=== PATIENT | male | born 2005 | race Caucasian/White ===

== ENCOUNTER 2025-07-15 06:22 | Emergency (ER) | payer OTHER, SELFPAY ==
[2025-07-15 06:28] VITALS: BP 143/85
[2025-07-15 07:00] VITALS: BP 130/84
--- NOTE | 2025-07-15 07:11 | ED.GENMED ---
History of Present Illness
<TYREL Munguia - Last Filed: 07/15/25 10:36>
General
Chief Complaint: Vomiting Blood
Source: patient and family
Exam Limitations: none
Time Seen by Provider: 07/15/25 07:00
Nursing documentation reviewed up to this point in time: agreed with
History of Present Illness
History of Present Illness:
Patient is a 19-year-old male past medical history of gastroparesis presents to the ER for evaluation of vomiting. Patient reports he was woken up by the sudden sensation that he needed to vomit and vomited darkish colored blood. Patient reports
he vomited to many times to count. This woke him up around 4:50 AM. He has had intermittent vomiting and has history with gastroparesis however never directly vomits blood initially. He does get blood streaks in his emesis from time to time. He
does complain of epigastric heartburn and burning. He denies any recent illness fever or chills. He is followed by [facility] in [facility]. Mom at bedside assisting with history.
Last endoscopy was [facility]. Mom reports patient has an appointment with GI in 2 wks.
Past History
<TYREL Munguia - Last Filed: 07/15/25 10:36>
Social History
Tobacco: Non-smoker
Alcohol: None
Drug: None
Phy Exam
<TYREL Munguia - Last Filed: 07/15/25 10:36>
General Physical Exam
General Presentation: no apparent distress
General age: appears stated age
General Skin: warm and dry
General Habitus: normal
General Mental: alert
General Hydration: appears well hydrated
Cardiovascular Exam
Cardiovascular Exam: regular rate/rhythm, no murmur and normal peripheral pulses
Pulmonary Exam
Pulmonary Exam: lungs clear and no respiratory distress
Gastrointestinal Exam
Gastrointestinal Exam: soft and other (mild epigastric tenderness)
Neurological Exam
Neurological Exam: alert and oriented x3
Musculoskeletal Exam
Musculoskeletal Exam: full ROM
Skin Exam
Skin Exam: normal color and warm/dry
Psychiatric Exam
Psychiatric Exam: normal mood/affect
Course
<TYREL Munguia - Last Filed: 07/15/25 10:36>
Orders/Labs/Results
Orders:
Orders
07/15/25 06:45
IV Insert/Care/Rem.- Treatment PRN
Straight cath- Treatment ONCE
Urinalysis Reflex To Culture Urgent
Date Specimen was Collected: 07/15/25
Time Specimen was Collected: 06:45
07/15/25 07:06
Complete Blood Count/With Diff Urgent
Comprehensive Metabolic Panel Urgent
Lipase Urgent
07/15/25 07:21
0.9% Sodium Chloride 1000 ml [Nss] 1,000 ml IV BOLUS
Metoclopramide [Reglan] 10 mg IV NOW STA
Pantoprazole [Protonix IV] 40 mg IV NOW STA
07/15/25 07:52
Diphenhydramine [Benadryl] 25 mg IV NOW STA
07/15/25 07:53
Diphenhydramine [Benadryl] 50 mg .ROUTE .STK-MED ONE
Abnormal Lab Results
07/15/25
07:06
Absolute Lymphs (auto) 1.1 L 10^3/uL
(1.2-3.4)
Neutrophils % 76.1 H %
(42.2-75.2)
Lymphocytes % 15.8 L %
(20.5-51.1)
Glucose 123 H mg/dl
(70-99)
Total Bilirubin 1.7 H mg/dl
(0.2-1.3)
07/15/25 07:06
07/15/25 07:06
Vital Signs
Initial and Last Documented VS:
Initial Vital Signs
Temp Pulse Resp BP Pulse Ox
98.1 F 75 20 143/85 99
07/15/25 06:28 07/15/25 06:28 07/15/25 06:28 07/15/25 06:28 07/15/25 06:28
Last Documented Vital Signs
Temp Pulse Resp BP Pulse Ox
98.1 F 71 16 117/68 98
07/15/25 06:28 07/15/25 08:33 07/15/25 08:33 07/15/25 08:28 07/15/25 08:28
[employer] Consultant consulted with Physician
[employer] Consultant consulted with physician?: Yes
Name of Physician Consulted: Dr Rosas
<Sav Rosas, DO - Last Filed: 07/15/25 10:34>
Orders/Labs/Results
Orders:
Orders
07/15/25 06:45
IV Insert/Care/Rem.- Treatment PRN
Straight cath- Treatment ONCE
Urinalysis Reflex To Culture Urgent
Date Specimen was Collected: 07/15/25
Time Specimen was Collected: 06:45
07/15/25 07:06
Complete Blood Count/With Diff Urgent
Comprehensive Metabolic Panel Urgent
Lipase Urgent
07/15/25 07:21
0.9% Sodium Chloride 1000 ml [Nss] 1,000 ml IV BOLUS
Metoclopramide [Reglan] 10 mg IV NOW STA
Pantoprazole [Protonix IV] 40 mg IV NOW STA
07/15/25 07:52
Diphenhydramine [Benadryl] 25 mg IV NOW STA
07/15/25 07:53
Diphenhydramine [Benadryl] 50 mg .ROUTE .STK-MED ONE
Abnormal Lab Results
07/15/25
07:06
Absolute Lymphs (auto) 1.1 L 10^3/uL
(1.2-3.4)
Neutrophils % 76.1 H %
(42.2-75.2)
Lymphocytes % 15.8 L %
(20.5-51.1)
Glucose 123 H mg/dl
(70-99)
Total Bilirubin 1.7 H mg/dl
(0.2-1.3)
07/15/25 07:06
07/15/25 07:06
Vital Signs
Initial and Last Documented VS:
Initial Vital Signs
Temp Pulse Resp BP Pulse Ox
98.1 F 75 20 143/85 99
07/15/25 06:28 07/15/25 06:28 07/15/25 06:28 07/15/25 06:28 07/15/25 06:28
Last Documented Vital Signs
Temp Pulse Resp BP Pulse Ox
98.1 F 71 16 117/68 98
07/15/25 06:28 07/15/25 08:33 07/15/25 08:33 07/15/25 08:28 07/15/25 08:28
<TYREL Munguia - Last Filed: 07/15/25 10:36>
MDM/Problems Addressed
Differential Diagnosis Includes:
Not limited to GI bleed, reflux, gastritis, anemia, dehydration
MDM/Problems Addressed:
As documented patient has history of gastroparesis reflux followed by her GI on regular home presents from several episodes of vomiting blood today. Patient presented stable nontachycardic abdomen soft nontender. Patient did vomit clear fluid here
no coffee-ground no blood. He was given which did improve the nausea. He felt slightly jittery for the Reglan was given Benadryl and fluids. Patient has been monitored and feeling much better remains very stable. Case discussed with ED physician
who evaluated patient will DC Protonix bland diet. He has appoint with GI in 2 weeks.
<TYREL Munguia - Last Filed: 07/15/25 10:36>
*Pulse Oximetry
SaO2: 98
Oxygen Mode of Delivery: Room air
Patient hypoxic: no
*Critical Care Note
Total Time (30-74mins, 75-104mins- exclusive of procedures): Not Applicable
ED Attending Note
<TYREL Munguia - Last Filed: 07/15/25 10:36>
-
Portions of this chart may have been created with voice recognition software.� Occasional wrong word or��sound alike� substitutions may have occurred due to the inherent limitations of voice recognition software.
<Sav Rosas DO - Last Filed: 07/15/25 10:34>
ED Attending Note
Patient seen and examined by attending physician: Yes
I performed the substantive portion of visit, reviewed & personally made and approve the management plan that is documented in note by myself or TICO.: Yes
ED Attending Note:
19-year-old male with a history of somewhat chronic gastrointestinal issues. Patient states he vomits most mornings and it feels better through the day. Today he vomited but noticed blood. On my assessment he feels much improved after treatment
given. On exam he is awake alert and oriented no abdominal distention. Hemoglobin is normal. Denies melena or hematochezia. Assessment and plan: Given his well appearance and improvement of symptoms will initiate PPI daily. Has a follow-up with
GI in the next 2 weeks. I recommended that he keep his diet light and avoid red foods or red drinks. He will advance diet slowly over the next 2 to 3 days. Him and his mom also agree to return immediately for any progression or return of
hematemesis. Trial management at home for now. If it recurs, may need admission for endoscopy and GI evaluation but anticipate outpatient management will be sufficient
Discharge Plan
Departure
Patient Disposition: Home (Routine Discharge)
Date of Disposition: 07/15/25
Time of Disposition: 10:31
Patient with high blood pressure during this ER visit?: No
Condition: Fair
Covid-19: Not Applicable
Discharge Problem:
Nausea and vomiting
Instructions: Nausea and Vomiting, Adult (DC), BLOOD PRESSURE
Prescriptions:
New
pantoprazole [Protonix] 40 mg tablet,delayed release (DR/EC)
40 mg PO DAILY Qty: 14 0RF
No Action
omeprazole 20 MG capsule,delayed release(DR/EC)
20 mg PO BID
acetaminophen 325 MG tablet
650 mg PO Q4HPRN PRN (Reason: mild pain) Qty: 1 0RF
ibuprofen 200 MG tablet
400 - 600 mg PO Q6HPRN PRN (Reason: moderate pain) Qty: 1 0RF
ondansetron 4 mg Tablet,Disintegrating
4 mg PO TIDPRN PRN (Reason: nausea/vomiting) Qty: 10 0RF
sucralfate [Carafate] 1 gram tablet
1 g PO ACHS Qty: 120 0RF
ondansetron 4 mg tablet,disintegrating
4 mg PO Q6H PRN (Reason: nausea and vomiting) Qty: 10 0RF
prochlorperazine maleate [Compazine] 10 mg tablet
10 mg PO TID PRN (Reason: nausea and vomiting) Qty: 15 0RF
Referrals:
Ted Omalley, [Family Provider, Family Practice]
Activity Restrictions/Additional Instructions:
As discussed take Protonix once daily for the next 2 weeks. Follow a very bland diet. Closely follow-up with your GI doctor as scheduled however return if any worsening of symptoms including any further vomiting blood pain or any further concerns.
Interventions
Interventions:
*Risk Screen - Suicide Last Done: 07/15/25 06:28
*General Assessment Last Done: 07/15/25 06:28
*Neglect/Abuse Screening Last Done: 07/15/25 06:28
*ED- Fall Risk Assessment Last Done: 07/15/25 06:28
*ED COVID-19 Vaccine History Last Done: 07/15/25 06:28
*ED Influenza Vaccine History Last Done: 07/15/25 06:34
ZN-Beyknh-Kecockrznz Assessment Last Done: 07/15/25 07:01
ED- Cardiac Assessment Last Done: 07/15/25 06:58
ED- Pulmonary Assessment Last Done: 07/15/25 06:59
Discharge Date and Time
Print Language: PUERTO RICAN
[2025-07-15 07:25] LABS: Hematocrit 42.8 % (39.0-52.0); Hemoglobin 14.9 g/dL (13.0-18.0); Mean Corp Hgb Conc. 34.8 g/dL (33.0-37.0); Mean Corpuscular Volume 87.5 fL (80.0-94.0); Nucleated Red Blood Cells % 0 % (-); Platelet Count 260 10^3/uL (130-400); Red Cell Dist. Width 12.0 % (11.5-14.5)
[2025-07-15 07:28] LABS: ALT (SGPT) 17 U/L (0-50); AST (SGOT) 23 U/L (17-59); Albumin 5.0 g/dl (3.5-5.0); Alkaline Phosphatase 108 U/L (38-126); Blood Urea Nitrogen 13 mg/dl (9-20); Calcium 9.5 mg/dl (8.4-10.2); Carbon Dioxide 28 mmol/L (22-30); Chloride 106 mmol/L (98-107); Glucose 123 mg/dl (70-99); Lipase 48 U/L (23-300); Potassium 4.2 mmol/L (3.5-5.1); Sodium 142 mmol/L (135-145); Total Protein 7.6 g/dl (6.3-8.2); eGFR > 60.00
[2025-07-15] MEDS: NSS 1000 IV (07:29)
[2025-07-15] MEDS: PROTONIX IV 40 MG IV (07:29)
[2025-07-15] MEDS: REGLAN 10 MG IV (07:29)
[2025-07-15] MEDS: BENADRYL 25 MG IV (07:53)
[2025-07-15 08:28] VITALS: BP 117/68
[2025-07-15 09:00] VITALS: BP 99/50
[2025-07-15 10:00] VITALS: BP 97/55
== END 2025-07-15 11:02 | disposition home or self-care (01) ==
LOC: EMR 06:22
PROVIDERS: EMERGENCY PHYSICIAN Emergency Medicine; FAMILY PHYSICIAN Family Medicine
DX: R11.2 Nausea with vomiting, unspecified (principal); K31.84 Gastroparesis
CPT/HCPCS: 99284; 96374; 96375 ×2; 96361; 80053; 83690; 85025